=== PATIENT | female | born 1955 | race Caucasian/White ===

== ENCOUNTER 2016-11-03 12:58 | Inpatient (IN) | payer OTHER ==
[~2016-11-03] VITALS: Ht 165.1 cm; Wt 112.2 kg
[2016-11-03] VITALS (12 sets, daily range): BP systolic 139–179; BP diastolic 63–86
[~2016-11-03 12:58] MED LIST: DIOVAN HCT 11 TABLET PO; Diovan HCT 320/25 PO; Lipitor PO; Lopressor PO
[2016-11-03 13:18] LABS: EOSINOPHIL (%) 3.5 % (0-5); EOSINOPHIL COUNT 0.4 K/uL (0-0.3); HEMATOCRIT 44.8 % (36.0-46.0); IMMATURE GRANULOCYTE (%) 0.2 % (0.0-0.7); IMMATURE GRANULOCYTE COUNT 0.2 K/uL; LYMPHOCYTE COUNT 2.8 K/uL (1.0-2.8); MCH 31.3 PG (29.0-34.0); MCHC 34.6 G/DL (30.0-36.0); MCV 90.5 FL (83-99); NEUTROPHIL (%) 65.8 % (45-76); NEUTROPHIL COUNT 8.2 K/uL (1.8-6.4); PLATELET COUNT 215 K/uL (156-360); RBC DIS.WIDTH-CV 12.6 % (11.8-14.6); RBC DIS.WIDTH-SD 40.9 % (39-53); RED BLOOD COUNT 4.95 M/uL (3.80-5.20); WHITE BLOOD COUNT 12.4 K/uL (4.1-10.2)
[2016-11-03 13:25] LABS: AMYLASE 25 IU/L (1-118); CHLORIDE 102 mEq/L (99-109); POTASSIUM 4.1 mEq/L (3.7-5.4); SODIUM 137 mEq/L (136-147)
[2016-11-03 13:27] LABS: GLUCOSE 239 mg/dL (70-99); INTER. NORMALIZED RATIO 1.1; PTT 26.6 (25-32)
[2016-11-03 13:28] LABS: ANION GAP 14 MEQ/L (2-14)
[2016-11-03 13:30] LABS: SERUM ETHYL ALCOHOL < 10 mg/dL
[2016-11-03 13:31] LABS: GFR ESTIMATE (CALCULATED) > 59 mL/min/
[2016-11-03 13:32] LABS: UREA NITROGEN (BUN) 10 mg/dL (9-23)
[2016-11-03 13:34] LABS: LIPASE 33 U/L (1.0-51.0)
[2016-11-03 13:41] LABS: TROP-I INTERPRETATION NEGATIVE; TROPONIN-I 0.02 ng/mL (0.0-0.30)
[2016-11-03 14:15] LABS: ADD MIUA? NO; BILIRUBIN NEGATIVE; BLOOD NEGATIVE; COLOR YELLOW ((YELLOW)); GLUCOSE (STRIP) 500; KETONES NEGATIVE; LEUKOCYTES NEGATIVE; NITRITE NEGATIVE; PROTEIN (STRIP) TRACE; SPECIFIC GRAVITY 1.013 (1.000-1.030); UCUL ADDED? NO; UROBILINOGEN 0.2 MG/DL (0.2-1.0)
[2016-11-03 14:28] LABS: AMPHETAMINE NEGATIVE (500 ng/mL); BARBITURATES NEGATIVE (200 ng/mL); BENZODIAZEPINES NEGATIVE (150 ng/mL); COCAINE NEGATIVE (150 ng/mL); INTERNAL CONTROLS VALID? YES; METHADONE NEGATIVE (200 ng/mL); METHAMPHETAMINE NEGATIVE (500 ng/mL); OPIATES (MORPHINE) NEGATIVE (100 ng/mL); OXYCODONE NEGATIVE (100 ng/mL); PHENCYCLIDINE NEGATIVE (25 ng/mL); PROPOXYPHENE NEGATIVE (300 ng/mL); THC CANNABINOIDS NEGATIVE (50 ng/mL); TRICYCLIC ANTIDEPRESSANTS NEGATIVE (300 ng/mL)
[2016-11-03 17:09] LABS: EOSINOPHIL (%) 1.7 % (0-5); EOSINOPHIL COUNT 0.2 K/uL (0-0.3); IMMATURE GRANULOCYTE (%) 0.3 % (0.0-0.7); IMMATURE GRANULOCYTE COUNT 0.4 K/uL; LYMPHOCYTE COUNT 2.2 K/uL (1.0-2.8); MCH 30.8 PG (29.0-34.0); MCV 90.7 FL (83-99); MEAN PLAT.VOLUME 12.2 uM^3 (9.5-12.4); MONOCYTE (%) 6.2 % (3-12); MONOCYTE COUNT 0.8 K/uL (0-0.8); NEUTROPHIL (%) 75.4 % (45-76); NEUTROPHIL COUNT 10.2 K/uL (1.8-6.4); PLATELET COUNT 218 K/uL (156-360); RBC DIS.WIDTH-CV 12.6 % (11.8-14.6); RBC DIS.WIDTH-SD 41.1 % (39-53); RED BLOOD COUNT 4.96 M/uL (3.80-5.20); WHITE BLOOD COUNT 13.5 K/uL (4.1-10.2)
[2016-11-03] MEDS ORDERED: NORVASC5 MG PO (17:12)
[2016-11-03] MEDS ORDERED: LOPRESSOR50 MG PO (17:13)
[2016-11-03] MEDS ORDERED: DIOVAN HCT 31 TABLE1 PO (17:13)
[2016-11-03] MEDS ORDERED: LO-DOSE ASPIRIN81 M2 PO (17:14)
[2016-11-03] MEDS ORDERED: PRAVACHOL20 MG PO (17:14)
[2016-11-03] MEDS ORDERED: METFORMIN HCL1000 MG PO (17:14)
[2016-11-03] MEDS ORDERED: GLIPIZIDE XL5 MG PO (17:15)
[2016-11-03] MEDS ORDERED: LEVO-T75 MCG PO (17:16)
[2016-11-03 17:18] LABS: CHLORIDE 99 mEq/L (99-109); POTASSIUM 3.5 mEq/L (3.7-5.4); SODIUM 138 mEq/L (136-147)
[2016-11-03 17:20] LABS: GLUCOSE 231 mg/dL (70-99)
[2016-11-03 17:21] LABS: ANION GAP 14 MEQ/L (2-14); INTER. NORMALIZED RATIO 1.1; PROTHROMBIN TIME 11.3 (9.2-11.2); PTT 23.3 (25-32)
[2016-11-03 17:24] LABS: GFR ESTIMATE (CALCULATED) > 59 mL/min/; UREA NITROGEN (BUN) 10 mg/dL (9-23)
[2016-11-03 17:42] LABS: SAMPLE HEMOLYSIS CHECK 0; SAMPLE ICTERIC CHECK 0; SAMPLE LIPEMIA CHECK 0
[2016-11-03 17:47] LABS: HDL CHOLESTEROL 30 MG/DL (Desirable>=50); LDL CHOLESTEROL 99 mg/dL (Desirable<100); NON-HDL CHOLESTEROL 154 mg/dL (Desirable<160); TOTAL CHOLESTEROL 184 mg/dL (Desirable<200); TRIGLYCERIDES 273 MG/DL (Normal: <150)
[2016-11-03 17:56] LABS: Estimated Average Glucose 220 mg/dL (70-123); HEMOGLOBIN A1c (GLYCOHEMOGLOB) 9.3 % HGB (Below 5.7)
[2016-11-03 18:33] LABS: METH RESISTANT S AUREUS PCR NEGATIVE (NEGATIVE)
[2016-11-03 18:35] LABS: PROBE CHECK PASS; SPECIMEN PROCESSING CONTROL PASS
[2016-11-03 23:16] LABS: POINT-OF-CARE METER ID UU14174217
[2016-11-04] VITALS (24 sets, daily range): BP systolic 0–197; BP diastolic 0–94
[2016-11-04 06:45] LABS: POINT-OF-CARE METER ID UU13113731
[2016-11-04 13:25] LABS: POINT-OF-CARE METER ID UU13113731
[2016-11-04] MEDS ORDERED: DIOVAN HCT 31 TABLE1 PO (15:39)
[2016-11-04] MEDS ORDERED: LOPRESSOR50 MG PO (15:39)
[2016-11-04] MEDS ORDERED: METFORMIN HCL1000 MG PO (15:39)
[2016-11-04] MEDS ORDERED: NORVASC5 MG PO (15:40)
[2016-11-04] MEDS ORDERED: LO-DOSE ASPIRIN81 M2 PO (15:40)
[2016-11-04] MEDS ORDERED: GLUCOTROL XL5 MG PO (15:41)
[2016-11-04] MEDS ORDERED: PRAVACHOL20 MG PO (15:41)
[2016-11-04 18:37] LABS: POINT-OF-CARE METER ID UU13113731
[2016-11-05] VITALS (17 sets, daily range): BP systolic 150–196; BP diastolic 55–88
[2016-11-05 00:25] LABS: POINT-OF-CARE METER ID UU13113731
[2016-11-05 06:24] LABS: HEMATOCRIT 43.2 % (36.0-46.0); MCH 31.6 PG (29.0-34.0); MCHC 33.3 G/DL (30.0-36.0); MEAN PLAT.VOLUME 12.5 uM^3 (9.5-12.4); PLATELET COUNT 235 K/uL (156-360); RBC DIS.WIDTH-CV 12.9 % (11.8-14.6); RBC DIS.WIDTH-SD 44.5 % (39-53); RED BLOOD COUNT 4.55 M/uL (3.80-5.20); WHITE BLOOD COUNT 14.6 K/uL (4.1-10.2)
[2016-11-05 06:26] LABS: MCV 94.9 FL (83-99)
[2016-11-05 06:57] LABS: ANION GAP 12 MEQ/L (2-14); CHLORIDE 95 MEQ/L (99-109); GFR ESTIMATE (CALCULATED) > 59 mL/min/; GLUCOSE 188 mg/dL (70-99); MAGNESIUM 2.1 mg/dl (1.3-2.7); SAMPLE HEMOLYSIS CHECK 0; SAMPLE ICTERIC CHECK 0; SAMPLE LIPEMIA CHECK 0; SODIUM 139 MEQ/L (136-147); UREA NITROGEN (BUN) 8 mg/dL (9-23)
[2016-11-05 16:59] LABS: POINT-OF-CARE METER ID UU13113731
[2016-11-05 18:07] LABS: POINT-OF-CARE METER ID UU14174225; POINT-OF-CARE USER ID STWAMT51
[2016-11-06 04:11] VITALS: BP 144/75
[2016-11-06 08:00] VITALS: BP 196/90
[2016-11-06 11:45] VITALS: BP 142/81
[2016-11-06 15:26] VITALS: BP 134/88
[2016-11-06 19:31] VITALS: BP 163/76
[2016-11-06 23:47] VITALS: BP 133/83
[2016-11-07 04:00] VITALS: BP 134/78
[2016-11-07 08:34] VITALS: BP 145/84
[2016-11-07 12:08] VITALS: BP 151/83
[2016-11-07 16:46] VITALS: BP 118/68
[2016-11-07 20:29] VITALS: BP 142/81
[2016-11-07 23:47] VITALS: BP 130/68
[2016-11-08 04:00] VITALS: BP 123/67
[2016-11-08 06:02] LABS: HEMATOCRIT 46.7 % (36.0-46.0); MCH 31.3 PG (29.0-34.0); MCHC 34.3 G/DL (30.0-36.0); MCV 91.2 FL (83-99); PLATELET COUNT 260 K/uL (156-360); RBC DIS.WIDTH-CV 12.8 % (11.8-14.6); RBC DIS.WIDTH-SD 42.5 % (39-53); RED BLOOD COUNT 5.12 M/uL (3.80-5.20); WHITE BLOOD COUNT 15.8 K/uL (4.1-10.2)
[2016-11-08 06:43] LABS: ANION GAP 11 MEQ/L (2-14); CHLORIDE 99 MEQ/L (99-109); GFR ESTIMATE (CALCULATED) > 59 mL/min/; GLUCOSE 188 mg/dL (70-99); POTASSIUM 3.7 MEQ/L (3.7-5.4); SAMPLE HEMOLYSIS CHECK 0; SAMPLE ICTERIC CHECK 0; SAMPLE LIPEMIA CHECK 0; SODIUM 139 MEQ/L (136-147); UREA NITROGEN (BUN) 19 mg/dL (9-23)
[2016-11-08 07:45] VITALS: BP 162/72
[2016-11-08] MEDS ORDERED: ATORVASTATIN CA80 MG PO (11:43)
[2016-11-08] MEDS ORDERED: AMLODIPINE BESYL5 MG PO (11:45)
[2016-11-08] MEDS ORDERED: ASPIRIN EC325 MG PO (11:46)
[2016-11-08] MEDS ORDERED: ROXICODONE5 MG PO (15:35)
[2016-11-08] MEDS ORDERED: TYLENOL REGULA325 MG PO (15:36)
[2016-11-08] MEDS ORDERED: NOVOLOG PE100 UNITS/ SC (15:37)
[2016-11-11 10:02] LABS: DRVVT Mixing Study Interp Not Indicated (()); PROTEIN C FUNCTIONAL ACTIVITY+ 152 % (70-180); PTT-LA 33 sec (<=40); Protein S, Free 113 % normal (50-147); dRVVT Screen 37 sec (<=45)
[2016-11-12 12:50] LABS: ANTITHROMBIN III ACTIVITY+ 114 % activi (80-120)
== END 2016-11-08 13:41 | DRG 62 ==
LOC: EME 12:58 → EDOF 16:07 → 5SOUTH 16:07 → 4WEST 16:07 → 5SOUTH 11-05 17:24
PROVIDERS: Emergency Medicine; Internal Medicine; Internal Medicine Critical Care Medicine; Specialist
DX: I63.8 Other cerebral infarction (principal); R29.704 NIHSS score 4; I10 Essential (primary) hypertension; I27.2 Other secondary pulmonary hypertension; E11.65 Type 2 diabetes mellitus with hyperglycemia; E78.5 Hyperlipidemia, unspecified; E03.9 Hypothyroidism, unspecified; R51 Headache; E66.9 Obesity, unspecified; Z68.41 Body mass index [BMI] 40.0-44.9, adult; F17.210 Nicotine dependence, cigarettes, uncomplicated; Z86.73 Personal history of transient ischemic attack (TIA), and cerebral infarction without residual deficits; Z87.19 Personal history of other diseases of the digestive system
CPT/HCPCS: 70450; 70496; 70498; 70551; 71010; 80048; 80048 91; 80061; 81003; 81240 90; 82150; 82565; 82948; 83036; 83090 90; 83690; 83735; 84100; 84484; 84520; 85025; 85025 91; 85027; 85240 90; 85300 90; 85303 90; 85305 90; 85306 90; 85307 90; 85610; 85613 90; 85730; 85730 90; 86146 90; 86147 90; 86850; 86900; 86901; 87641; 92610 GN; 93005; 93306; 93880; 94799; 97530 GO; 97530 GP; 99281; 99285; G0478; G0480; J1170; J1200; J1815; J2405; J2765; J2997; J3010; J7030; J7050

== ENCOUNTER 2016-11-06 11:46 | Inpatient (IN) | payer OTHER ==
[~2016-11-06] VITALS: Ht 165.1 cm; Wt 107.2 kg
[~2016-11-06 11:46] MED LIST changes: +DIOVAN HCT 31 TABLE1 PO; +GLIPIZIDE XL5 MG PO; +GLUCOTROL XL5 MG PO; +LEVO-T75 MCG PO; +LO-DOSE ASPIRIN81 M2 PO; +LOPRESSOR50 MG PO; +METFORMIN HCL1000 MG PO; +NORVASC5 MG PO; +PRAVACHOL20 MG PO
[2016-11-08] MEDS ORDERED: ATORVASTATIN CA80 MG PO (11:43)
[2016-11-08] MEDS ORDERED: AMLODIPINE BESYL5 MG PO (11:45)
[2016-11-08] MEDS ORDERED: ASPIRIN EC325 MG PO (11:46)
[2016-11-08 13:57] VITALS: BP 133/72
[2016-11-08] MEDS ORDERED: ROXICODONE5 MG PO (15:35)
[2016-11-08] MEDS ORDERED: TYLENOL REGULA325 MG PO (15:36)
[2016-11-08] MEDS ORDERED: NOVOLOG PE100 UNITS/ SC (15:37)
[2016-11-08 16:39] LABS: POINT-OF-CARE METER ID UU14174215
[2016-11-08 20:58] LABS: POINT-OF-CARE METER ID UU14174215; POINT-OF-CARE USER ID 610211320
[2016-11-08 21:37] VITALS: BP 142/79
[2016-11-09] VITALS: BP 138/83
[2016-11-09 05:55] VITALS: BP 111/60
[2016-11-09 07:24] LABS: POINT-OF-CARE METER ID UU13113720
[2016-11-09 11:30] LABS: POINT-OF-CARE METER ID UU13113720
[2016-11-09 15:00] VITALS: BP 112/69
[2016-11-09 16:58] LABS: POINT-OF-CARE METER ID UU13113720
[2016-11-09 21:48] LABS: POINT-OF-CARE METER ID UU13113720
[2016-11-10 05:05] VITALS: BP 118/58
[2016-11-10 06:43] LABS: HEMATOCRIT 43.9 % (36.0-46.0); MCH 31.4 PG (29.0-34.0); MCHC 34.2 G/DL (30.0-36.0); MEAN PLAT.VOLUME 12.6 uM^3 (9.5-12.4); PLATELET COUNT 242 K/uL (156-360); RBC DIS.WIDTH-CV 12.9 % (11.8-14.6); RBC DIS.WIDTH-SD 43.3 % (39-53); RED BLOOD COUNT 4.77 M/uL (3.80-5.20); WHITE BLOOD COUNT 12.5 K/uL (4.1-10.2)
[2016-11-10 07:02] LABS: ALKALINE PHOSPHATASE 73 IU/L (3-129); ANION GAP 10 MEQ/L (2-14); CHLORIDE 102 MEQ/L (99-109); GFR ESTIMATE (CALCULATED) > 59 mL/min/; GLUCOSE 203 mg/dL (70-99); POTASSIUM 3.3 MEQ/L (3.7-5.4); SAMPLE HEMOLYSIS CHECK 0; SAMPLE ICTERIC CHECK 0; SAMPLE LIPEMIA CHECK 0; SODIUM 139 MEQ/L (136-147); TOTAL BILIRUBIN 0.6 MG/DL (0.0-1.0); UREA NITROGEN (BUN) 15 mg/dL (9-23)
[2016-11-10 07:03] LABS: EOSINOPHIL (%) 2.7 % (0-5); EOSINOPHIL COUNT 0.3 K/uL (0-0.3); IMMATURE GRANULOCYTE (%) 0.2 % (0.0-0.7); LYMPHOCYTE COUNT 3.2 K/uL (1.0-2.8); MONOCYTE (%) 8.5 % (3-12); MONOCYTE COUNT 1.1 K/uL (0-0.8); NEUTROPHIL (%) 62.6 % (45-76); NEUTROPHIL COUNT 7.9 K/uL (1.8-6.4)
[2016-11-10 07:21] LABS: POINT-OF-CARE METER ID UU13113720; POINT-OF-CARE USER ID AHSSSJB31
[2016-11-10 11:57] LABS: POINT-OF-CARE METER ID UU13113720; POINT-OF-CARE USER ID AHSSSJB31
[2016-11-10 16:20] LABS: POINT-OF-CARE METER ID UU14174215
[2016-11-10 20:57] LABS: POINT-OF-CARE METER ID UU13113720
[2016-11-11 05:30] VITALS: BP 148/65
[2016-11-11 07:30] LABS: POINT-OF-CARE METER ID UU14174215; POINT-OF-CARE USER ID AHSSSJB31
[2016-11-11 11:57] LABS: POINT-OF-CARE METER ID UU13113720
[2016-11-11 16:00] VITALS: BP 131/75
[2016-11-11 16:22] LABS: POINT-OF-CARE METER ID UU13113720
[2016-11-11 21:19] LABS: POINT-OF-CARE METER ID UU13113720; POINT-OF-CARE USER ID 610211320
[2016-11-12 05:28] VITALS: BP 153/74
[2016-11-12 07:25] LABS: POINT-OF-CARE METER ID UU13113720
[2016-11-12 11:47] LABS: POINT-OF-CARE METER ID UU13113720; POINT-OF-CARE USER ID AHSSSJB31
[2016-11-12 15:46] VITALS: BP 128/74
[2016-11-12 16:19] LABS: POINT-OF-CARE METER ID UU13113720
[2016-11-12 21:11] LABS: POINT-OF-CARE METER ID UU13113720
[2016-11-13 04:45] VITALS: BP 132/64
[2016-11-13 05:40] LABS: HEMATOCRIT 40.4 % (36.0-46.0); MCH 30.5 PG (29.0-34.0); MCHC 32.9 G/DL (30.0-36.0); MCV 92.7 FL (83-99); MEAN PLAT.VOLUME 12.8 uM^3 (9.5-12.4); PLATELET COUNT 219 K/uL (156-360); RBC DIS.WIDTH-CV 12.7 % (11.8-14.6); RBC DIS.WIDTH-SD 43.1 % (39-53); RED BLOOD COUNT 4.36 M/uL (3.80-5.20); WHITE BLOOD COUNT 12.7 K/uL (4.1-10.2)
[2016-11-13 06:12] LABS: ALKALINE PHOSPHATASE 71 IU/L (3-129); ANION GAP 9 MEQ/L (2-14); CHLORIDE 102 MEQ/L (99-109); GFR ESTIMATE (CALCULATED) > 59 mL/min/; GLUCOSE 154 mg/dL (70-99); POTASSIUM 3.8 MEQ/L (3.7-5.4); SAMPLE HEMOLYSIS CHECK 0; SAMPLE ICTERIC CHECK 0; SAMPLE LIPEMIA CHECK 0; SODIUM 140 MEQ/L (136-147); TOTAL BILIRUBIN 0.6 MG/DL (0.0-1.0); UREA NITROGEN (BUN) 12 mg/dL (9-23)
[2016-11-13 07:21] LABS: POINT-OF-CARE METER ID UU14174215
[2016-11-13 11:42] LABS: POINT-OF-CARE METER ID UU14174215
[2016-11-13 15:13] VITALS: BP 147/78
[2016-11-13 16:31] LABS: POINT-OF-CARE METER ID UU14174215
[2016-11-13 21:30] LABS: POINT-OF-CARE METER ID UU14174215
[2016-11-14 05:13] VITALS: BP 120/58
[2016-11-14 07:43] LABS: POINT-OF-CARE METER ID UU13113720; POINT-OF-CARE USER ID AHSSSJB31
[2016-11-14 11:55] LABS: POINT-OF-CARE METER ID UU13113720; POINT-OF-CARE USER ID AHSSSJB31
[2016-11-14 15:32] VITALS: BP 122/67
[2016-11-14 16:32] LABS: POINT-OF-CARE METER ID UU13113720
[2016-11-14 21:30] LABS: POINT-OF-CARE METER ID UU13113720
[2016-11-14] MEDS ORDERED: DIOVAN HCT 31 TABLE1 PO (22:47)
[2016-11-14] MEDS ORDERED: LEVO-T75 MCG PO (22:47)
[2016-11-14] MEDS ORDERED: ASPIRIN EC325 MG PO (22:47)
[2016-11-14] MEDS ORDERED: LOPRESSOR50 MG PO (22:47)
[2016-11-14] MEDS ORDERED: DOCUSATE SODIU100 MG PO (22:47)
[2016-11-14] MEDS ORDERED: GLUCOTROL XL5 MG PO (22:47)
[2016-11-14] MEDS ORDERED: VITAMIN D-32000 UNI2 PO (22:47)
[2016-11-14] MEDS ORDERED: ATORVASTATIN CA80 MG PO (22:47)
[2016-11-14] MEDS ORDERED: SENNA LAX8.6 MG PO (22:47)
[2016-11-14] MEDS ORDERED: AMLODIPINE BESYL5 MG PO (22:47)
[2016-11-14] MEDS ORDERED: LEVEMIR100 UNIT/2 SC (22:47)
[2016-11-14] MEDS ORDERED: METFORMIN HCL1000 MG PO (22:47)
[2016-11-15 05:35] VITALS: BP 166/82
[2016-11-15 07:39] LABS: POINT-OF-CARE METER ID UU13113720; POINT-OF-CARE USER ID AHSSSJB31
[2016-11-15 12:00] LABS: POINT-OF-CARE METER ID UU14174215
[2016-11-15 13:40] VITALS: BP 126/66
== END 2016-11-15 13:55 | DRG 57 ==
LOC: 3WEST 11:46
PROVIDERS: Physical Medicine & Rehabilitation Pain Medicine; Psychiatry & Neurology Neurology
PROC: F07M0ZZ Range of Motion and Joint Mobility Treatment of Musculoskeletal System - Whole Body (ICD-10-PCS; principal; 2016-11-08)
DX: I69.353 Hemiplegia and hemiparesis following cerebral infarction affecting right non-dominant side (principal); I10 Essential (primary) hypertension; E11.9 Type 2 diabetes mellitus without complications; F17.200 Nicotine dependence, unspecified, uncomplicated; E78.5 Hyperlipidemia, unspecified; E66.9 Obesity, unspecified; R26.9 Unspecified abnormalities of gait and mobility; I25.10 Atherosclerotic heart disease of native coronary artery without angina pectoris; D72.829 Elevated white blood cell count, unspecified; Z68.39 Body mass index [BMI] 39.0-39.9, adult
CPT/HCPCS: 80053; 82306; 82607; 82948; 84443; 85025; 85027; 87086; 92523 GN; 97110 GO; 97530 GP; J1650